=== PATIENT | female | born 2000 | race African-American/Black ===

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

== ENCOUNTER 2021-07-21 11:40 | Emergency (ER) | payer OTHER ==
[~2021-07-21] VITALS: Ht 167.6 cm; Wt 59.0 kg
[2021-07-21 11:48] VITALS: BP 132/82
== END 2021-07-21 14:55 | disposition left against medical advice (07) ==
LOC: ER 11:40
DX: R10.13 Epigastric pain (principal); R11.2 Nausea with vomiting, unspecified
CPT/HCPCS: 99281

== ENCOUNTER 2025-03-22 19:22 | Emergency (ER) | payer MEDICAID, OTHER ==
[~2025-03-22] VITALS: Ht 170.2 cm; Wt 61.4 kg
[2025-03-22 19:54] VITALS: O2SAT 99
[2025-03-22] MEDS: DOXYCYCLINE HYCLATE 100MG CAPSULE PO ONE (22:12)
[2025-03-22] MEDS: LIDOCAINE HCL 1% 20ML VIAL INFIL ONE (22:12)
[2025-03-22] MEDS: CEFTRIAXONE SODIUM 500MG VIAL IM ONE (22:12)
[2025-03-22 22:23] VITALS: BP 118/66; PULSE 60; RESP 18; TEMP 36.8; O2SAT 100
[2025-03-22 22:38] LABS: CLARITY URINE CLEAR (CLEAR); COLOR URINE YELLOW (YELLOW)
[2025-03-22 22:39] LABS: GLUCOSE URINE NEGATIVE (NEGATIVE); KETONES URINE NEGATIVE (NEGATIVE); LEUKOCYTE ESTERASE URINE NEGATIVE (NEGATIVE); NITRITE URINE NEGATIVE (NEGATIVE); OCCULT BLOOD URINE NEGATIVE (NEGATIVE); PH URINE 7.5 (4.5-8.0); PROTEIN URINE NEGATIVE (NEGATIVE); SPECIFIC GRAVITY URINE 1.019 (1.005-1.030); UROBILINOGEN URINE 0.2 E.U./dL (0.2-1.0)
== END 2025-03-22 22:42 | disposition home or self-care (01) ==
LOC: ER 19:22
DX: Z11.3 Encounter for screening for infections with a predominantly sexual mode of transmission (principal); Z90.49 Acquired absence of other specified parts of digestive tract
CPT/HCPCS: 87491; 87591; 81003; 81025; 96372; 99283; J0696; J2003; Z7610

== ENCOUNTER 2025-09-10 16:20 | Emergency (ER) | payer OTHER ==
[~2025-09-10] VITALS: Ht 167.6 cm; Wt 59.0 kg
[2025-09-10 16:37] VITALS: O2SAT 100
[2025-09-10] MEDS ORDERED: OFLO5DRO4 LEFT EAR (18:28)
[2025-09-10] MEDS ORDERED: IBUP-2028 MT (18:28)
[2025-09-10] MEDS ORDERED: AMOX1TAB16 MT (18:28)
[2025-09-10] MEDS ORDERED: TOPUD PO (18:28)
[2025-09-10 18:33] VITALS: BP 122/74; PULSE 62; RESP 17; TEMP 36.7; O2SAT 100
[2025-09-10] MEDS ORDERED: DOXY100T2 MT (18:39)
[2025-09-10] MEDS: CEFTRIAXONE SODIUM 500MG VIAL IM ONE (18:46)
[2025-09-10 19:53] LABS: HEPATITIS A AB IGM NEGATIVE (Negative)
[2025-09-10 19:54] LABS: HEPATITIS B CORE AB IGM NEGATIVE (Negative); HEPATITIS C AB NON REACTIVE (Neg) (Negative)
[2025-09-14 04:07] LABS: CHLAMYDIA TRACHOMATIS NAA Negative (Negative); NEISSERIA GONORRHOEAE NAA Negative (Negative)
== END 2025-09-10 18:56 | disposition home or self-care (01) ==
LOC: ER 16:20
DX: H66.92 Otitis media, unspecified, left ear (principal); Z11.3 Encounter for screening for infections with a predominantly sexual mode of transmission; Z90.49 Acquired absence of other specified parts of digestive tract
CPT/HCPCS: 99283; 86593; 86592; 87491; 87529 ×2; 87591; 81025; 87340; 36415; 86709; 96372; 86705; J0696